=== PATIENT | male | born 1980 | race Caucasian/White ===

== ENCOUNTER 2024-04-13 20:27 | Emergency (ER) | payer MEDICAID ==
[~2024-04-13] VITALS: Ht 182.9 cm; Wt 100.0 kg
[2024-04-13 20:40] VITALS: O2SAT 98
[2024-04-13 21:32] VITALS: BP 125/70; PULSE 83; RESP 20; TEMP 37.05852; O2SAT 98
[2024-04-13 22:06] LABS: HEMATOCRIT. 45.4 % (42.0-52.0); HEMOGLOBIN. 15.7 g/dL (14.0-18.0); MEAN CORPUSCULAR HEMOGLOBIN 31.1 pg (28.0-32.0); MEAN CORPUSCULAR HGB CONC 34.6 g/dL (31.0-37.0); MEAN PLATELET VOLUME 6.9 fl (7.4-10.4); PLATELET 266 x1000/uL (130-400); RED BLOOD CELL COUNT 5.04 mill/uL (4.7-6.1); RED CELL DISTRIBUTION WIDTH 12.8 % (11.6-14.6); WHITE BLOOD COUNT 13.1 x1000/uL (4.5-11.0)
[2024-04-13 22:07] LABS: DIFFERENTIAL COMMENT 1
[2024-04-13 22:12] LABS: CARBON DIOXIDE 28 mEq/L (21-32); CHLORIDE 107 mEq/L (98-107); POTASSIUM 3.7 mEq/L (3.5-5.1); SODIUM 140 mEq/L (136-145)
[2024-04-13 22:13] LABS: CALCIUM 9.4 mg/dL (8.7-10.4); PROTHROMBIN TIME 11.3 sec (9.6-11.0)
[2024-04-13] MEDS: MAGNESIUM/ALUMINUM HYDROXIDE/SIMETHICONE 30ML UDC PO ONE (22:13)
[2024-04-13] MEDS: SODIUM CHLORIDE 0.9% 1,000 ML IV ONE (22:13)
[2024-04-13] MEDS: ONDANSETRON HCL 4MG/2ML INJ IV ONE (22:13)
[2024-04-13 22:17] LABS: CREATININE 1.1 mg/dL (0.6-1.3)
[2024-04-13 22:18] LABS: GLUCOSE 97 mg/dL (70-105); UREA NITROGEN BLOOD 19 mg/dL (9-23)
[2024-04-13 22:19] LABS: ALANINE AMINOTRANSFERASE 33 IU/L (10-49); ALBUMIN 4.2 g/dL (3.2-4.8); ASPARTATE AMINOTRANSFERASE 28 IU/L (<34)
[2024-04-13 22:20] LABS: BILIRUBIN DIRECT 0.2 mg/dL (<=3.0); BILIRUBIN TOTAL 0.7 mg/dL (0.1-1.0)
[2024-04-13 22:21] LABS: TROPONIN I HIGH SENSITIVITY < 4 ng/L (3.0-53)
[2024-04-13 22:44] LABS: PLATELET ESTIMATE NORMAL
[2024-04-13] MEDS ORDERED: ONDA4TAB50 MT (23:12)
== END 2024-04-14 00:32 | disposition home or self-care (01) ==
LOC: ER 20:27
DX: R10.9 Unspecified abdominal pain (principal)
CPT/HCPCS: 99283; 96374; 80076; 80048; 83690; 85025; 85610; 84484; 36415; J2405; J7030

== ENCOUNTER 2024-08-05 15:02 | Emergency (ER) | payer MEDICAID ==
[~2024-08-05] VITALS: Ht 182.9 cm; Wt 110.0 kg
[~2024-08-05 15:02] MED LIST: ONDA4TAB50 MT
[2024-08-05 15:13] VITALS: O2SAT 97
[2024-08-05 15:28] VITALS: TEMP 37.1; O2SAT 98
[2024-08-05 16:15] LABS: BASOPHILS % 0.5 % (0.0-2.0); EOSINOPHILS % 0.8 % (0.0-5.0); HEMATOCRIT. 43.1 % (42.0-52.0); HEMOGLOBIN. 14.7 g/dL (14.0-18.0); LYMPHOCYTES % 14.5 % (20.0-50.0); MEAN CORPUSCULAR HGB CONC 34.2 g/dL (31.0-37.0); MEAN CORPUSCULAR VOLUME 90.7 fL (80.0-94.0); MEAN PLATELET VOLUME 7.2 fl (7.4-10.4); NEUTROPHILS % 76.2 % (40.0-76.0); PLATELET 264 x1000/uL (130-400); RED BLOOD CELL COUNT 4.74 mill/uL (4.7-6.1); RED CELL DISTRIBUTION WIDTH 12.9 % (11.6-14.6); WHITE BLOOD COUNT 9.2 x1000/uL (4.5-11.0)
[2024-08-05 16:18] LABS: CHLORIDE 104 mEq/L (98-107); POTASSIUM 4.2 mEq/L (3.5-5.1); SODIUM 138 mEq/L (136-145)
[2024-08-05 16:19] LABS: CALCIUM 9.2 mg/dL (8.7-10.4); CARBON DIOXIDE 24 mEq/L (21-32)
[2024-08-05 16:24] LABS: GLUCOSE 100 mg/dL (70-105); UREA NITROGEN BLOOD 18 mg/dL (9-23)
[2024-08-05 16:26] LABS: ALANINE AMINOTRANSFERASE 24 IU/L (10-49); ALBUMIN 4.2 g/dL (3.2-4.8); ASPARTATE AMINOTRANSFERASE 25 IU/L (<34); BILIRUBIN DIRECT 0.2 mg/dL (<=3.0)
[2024-08-05 16:27] LABS: BILIRUBIN TOTAL 0.7 mg/dL (0.1-1.0); PROTEIN TOTAL 7.3 g/dL (6.0-8.3)
[2024-08-05] MEDS: LACTATED RINGERS 1,000 ML IV ONE (18:09)
[2024-08-05] MEDS: FAMOTIDINE 20MG/2ML VIAL IV ONE (18:09)
[2024-08-05] MEDS: ONDANSETRON HCL 4MG/2ML INJ IV ONE (18:09)
[2024-08-05] MEDS ORDERED: LACT1CAP88 MT (20:45)
[2024-08-05] MEDS ORDERED: ONDA4TAB50 MT (20:46)
[2024-08-05 21:07] VITALS: BP 132/78; PULSE 81; RESP 12
[2024-08-05] MEDS: KETOROLAC 15MG/ML VIAL IV ONE (21:07)
[2024-08-05] MEDS ORDERED: IOHEXOL-300 100 ML BOTTLE ONE (22:46)
== END 2024-08-05 21:08 | disposition home or self-care (01) ==
LOC: ER 15:02
DX: K52.9 Noninfective gastroenteritis and colitis, unspecified (principal); Z79.01 Long term (current) use of anticoagulants; Z59.01 Sheltered homelessness; Z98.890 Other specified postprocedural states
CPT/HCPCS: 99285; 74177; 96374; 96361; 96375; 80076; 80048; 83690; 85025; 36415; J1885; Q9967; J3490; J2405; J7120